=== PATIENT | female | born 1940 | race Caucasian/White ===

== ENCOUNTER 2018-03-18 09:54 | Outpatient (CLI) | payer OTHER, SELFPAY ==
[2018-03-18 13:27] LABS: TSH (W/Ref FT4) 2.89 uIU/mL (0.358-3.74)
== END 2018-03-18 10:14 ==
PROVIDERS: PCP Family Medicine; Visit Provider Family Medicine
DX: E03.9 Hypothyroidism, unspecified (principal)
CPT/HCPCS: 36415; 84443

== ENCOUNTER 2018-04-01 01:15 | Outpatient (CLI) | payer OTHER, SELFPAY ==
--- NOTE | 2018-04-01 11:30 | DI.MAMMO_ITS ---
SYMPTOMS/DIAGNOSIS: SCREENING, Z12.31 MAMMOGRAM: Mammograms were interpreted according to the usual protocol including computer analysis with CAD system, tomosynthesis and C view imaging. The breast tissue is of moderate radiodensity. There is no evidence of a mass. There are no suspicious calcifications and there has been no significant interval change when compared with prior images. SUMMARY: No evidence of malignancy, Category I, yearly screening mammography is recommended. Breast density Category B. SA ASSESSMENT OF FINDINGS: Negative. Category 1. Patient will receive a letter notifying them of these results. BI-RADS category B. There are scattered areas of fibroglandular density.
== END 2018-04-01 01:35 ==
PROVIDERS: PCP Family Medicine; Visit Provider Family Medicine
DX: Z12.31 Encounter for screening mammogram for malignant neoplasm of breast (principal)
CPT/HCPCS: 77063; 77067

== ENCOUNTER 2018-09-16 09:20 | Outpatient (CLI) | payer OTHER, SELFPAY ==
[2018-09-16 12:25] LABS: Cholesterol 202 mg/dL (50-200); HDL Cholesterol 75 mg/dL (40-60); LDL CHOLESTEROL 107 mg/dL (<100); Triglyceride 80 mg/dL (30-150)
[2018-09-16 12:32] LABS: ALT 17 U/L (12-78); AST 17 U/L (15-37); Albumin 3.7 g/dL (3.4-5.0); Alkaline Phosphatase 90 U/L (46-116); Anion Gap 9.2 mmol/L (3-11); BUN 30 mg/dL (7-18); Bilirubin, Total 0.5 mg/dL (0.2-1.0); CO2 28.8 mmol/L (21.0-32.0); CREATININE 1.34 mg/dL (0.55-1.02); Calcium 9.2 mg/dL (8.5-10.1); Chloride 103 mmol/L (98-107); Estimated GFR 38.35 (mL/min/1.73m2); Glucose 92 mg/dL (70-100); Potassium 4.3 mmol/L (3.5-5.1); Sodium 141 mmol/L (136-145); TSH (W/Ref FT4) 2.02 uIU/mL (0.358-3.74); Total Protein 7.1 g/dL (6.4-8.2)
== END 2018-09-16 09:40 ==
PROVIDERS: PCP Family Medicine; Visit Provider Family Medicine
DX: I10 Essential (primary) hypertension (principal); E03.9 Hypothyroidism, unspecified
CPT/HCPCS: 80053; 80061; 83721; 84443

== ENCOUNTER 2019-03-03 01:30 | Outpatient (CLI) | payer OTHER, SELFPAY ==
[2019-03-03 13:36] LABS: TSH (W/Ref FT4) 2.26 uIU/mL (0.36-3.74)
== END 2019-03-03 01:50 ==
PROVIDERS: PCP Family Medicine; Visit Provider Family Medicine
DX: E03.9 Hypothyroidism, unspecified (principal)
CPT/HCPCS: 36415; 80061; 84443

== ENCOUNTER 2020-03-07 02:30 | Outpatient (CLI) | payer OTHER, SELFPAY ==
[2020-03-07 13:05] LABS: ALT 18 U/L (14-59); AST 21 U/L (15-37); Albumin 3.6 g/dL (3.4-5.0); Alkaline Phosphatase 81 U/L (46-116); Anion Gap 7.4 mmol/L (3-11); BUN 25 mg/dL (7-18); Bilirubin, Total 0.4 mg/dL (0.2-1.0); CO2 30.6 mmol/L (21.0-32.0); CREATININE 1.39 mg/dL (0.55-1.02); Calcium 9.5 mg/dL (8.5-10.1); Chloride 104 mmol/L (98-107); Estimated GFR 36.57 (mL/min/1.73m2); Glucose 96 mg/dL (74-106); Potassium 4.3 mmol/L (3.5-5.1); Sodium 142 mmol/L (136-145); Total Protein 6.8 g/dL (6.4-8.2)
== END 2020-03-07 02:50 ==
PROVIDERS: PCP Family Medicine; Visit Provider Family Medicine
DX: E03.9 Hypothyroidism, unspecified (principal); I10 Essential (primary) hypertension
CPT/HCPCS: 36415; 80053; 84443

== ENCOUNTER 2020-06-13 01:59 | Outpatient (CLI) | payer OTHER, SELFPAY ==
--- NOTE | 2020-06-13 08:15 | DI.RAD_ITS ---
EXAM: XR HIP LT COMPLETE AP PELVIS CLINICAL HISTORY: hip arthritis, pain lt hip, M25.552. TECHNIQUE: 2D digital imaging was performed. FINDINGS: There is no evidence of fracture nor abnormal soft tissue calcifications. There are moderate osteoar thritic degenerative changes in the left hip. There is mild joint space narrowing and there are lenin inal osteophytes of both sides the femoral head. No lytic lesions. Lesser amount of degenerative ch anges are seen in the opposite-right hip. 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 DATA REPOSITORY: RADIATION DOSE DELIVERED:
== END 2020-06-13 02:19 ==
PROVIDERS: PCP Family Medicine; Visit Provider Family Medicine
DX: M16.12 Unilateral primary osteoarthritis, left hip (principal)
CPT/HCPCS: 73502

== ENCOUNTER 2020-11-01 03:12 | Outpatient (CLI) | payer OTHER, SELFPAY ==
[2020-11-01 12:48] LABS: ALT 19 U/L (14-59); AST 18 U/L (15-37); Albumin 3.7 g/dL (3.4-5.0); Alkaline Phosphatase 76 U/L (46-116); Anion Gap 8.1 mmol/L (3-11); BUN 30 mg/dL (7-18); Bilirubin, Total 0.4 mg/dL (0.2-1.0); CO2 27.9 mmol/L (21.0-32.0); CREATININE 1.5 mg/dL (0.55-1.02); Calcium 8.6 mg/dL (8.5-10.1); Chloride 105 mmol/L (98-107); Glucose 85 mg/dL (74-106); Potassium 4.6 mmol/L (3.5-5.1); Sodium 141 mmol/L (136-145); TSH (W/Ref FT4) 1.59 uIU/mL (0.36-3.74); Total Protein 6.9 g/dL (6.4-8.2)
== END 2020-11-01 03:13 | disposition home or self-care (01) ==
PROVIDERS: PCP Family Medicine; Visit Provider Family Medicine
DX: N18.9 Chronic kidney disease, unspecified (principal); E03.9 Hypothyroidism, unspecified
CPT/HCPCS: 36415; 80053; 84443

== ENCOUNTER 2021-03-02 02:47 | Outpatient (CLI) | payer OTHER, SELFPAY ==
[2021-03-02 12:52] LABS: ALT 16 U/L (14-59); AST 15 U/L (15-37); Albumin 3.6 g/dL (3.4-5.0); Alkaline Phosphatase 84 U/L (46-116); Anion Gap 9.9 mmol/L (3-11); BUN 30 mg/dL (7-18); Bilirubin, Total 0.4 mg/dL (0.2-1.0); CO2 25.1 mmol/L (21.0-32.0); CREATININE 1.9 mg/dL (0.55-1.02); Calcium 8.3 mg/dL (8.5-10.1); Chloride 106 mmol/L (98-107); Estimated GFR 25.44 (mL/min/1.73m2); Glucose 92 mg/dL (74-106); Potassium 4.4 mmol/L (3.5-5.1); Sodium 141 mmol/L (136-145); Total Protein 6.9 g/dL (6.4-8.2)
== END 2021-03-02 02:48 | disposition home or self-care (01) ==
LOC: LOS 02:48
PROVIDERS: PCP Family Medicine; Visit Provider Family Medicine
DX: N28.9 Disorder of kidney and ureter, unspecified (principal)
CPT/HCPCS: 36415; 80053

== ENCOUNTER 2021-04-13 15:03 | Outpatient (REF) | payer MEDICARE, SELFPAY ==
[2021-04-14 13:27] LABS: COVID-19 RT-PCR UVMMC Result Negative (Negative)
== END 2021-04-13 15:04 | disposition home or self-care (01) ==
LOC: LBN 15:03
PROVIDERS: PCP Family Medicine; Visit Provider Family Medicine
DX: Z20.822 Contact with and (suspected) exposure to COVID-19 (principal); J02.9 Acute pharyngitis, unspecified
CPT/HCPCS: U0003; U0005

== ENCOUNTER 2021-10-24 01:20 | Outpatient (CLI) | payer MEDICARE, SELFPAY ==
[2021-10-24 10:07] LABS: Anion Gap 9.6 mmol/L (3-11); BUN 31 mg/dL (7-18); CO2 26.4 mmol/L (21.0-32.0); CREATININE 1.9 mg/dL (0.55-1.02); Calcium 8.7 mg/dL (8.5-10.1); Chloride 106 mmol/L (98-107); Estimated GFR 25.44 (mL/min/1.73m2); Glucose 98 mg/dL (74-106); Potassium 4.4 mmol/L (3.5-5.1); Sodium 142 mmol/L (136-145)
== END 2021-10-24 01:21 | disposition home or self-care (01) ==
LOC: LBO 01:20
PROVIDERS: PCP Family Medicine; Visit Provider Family Medicine
DX: I10 Essential (primary) hypertension (principal); N28.9 Disorder of kidney and ureter, unspecified
CPT/HCPCS: 36415; 80048

== ENCOUNTER → 2021-11-22 12:31 | Outpatient (CLI) | payer MEDICARE, SELFPAY ==
--- NOTE | 2021-11-22 10:15 | DI.RAD_ITS ---
Exam(s) XR FOOT RT COMPLETE EXAM: XR FOOT RT COMPLETE CLINICAL HISTORY: trauma r/o fx, rt foot pain, M79.671. TECHNIQUE: 2D digital imaging was performed. COMPARISON: No exams were available for comparison FINDINGS: 3 views No evidence of fracture nor diastasis of the Lisfranc joint. No degenerative changes. No osseous lesions nor erosions. Bone density is age-appropriate. No osse ous lesions. IMPRESSION: DATA REPOSITORY: RADIATION DOSE DELIVERED:
== END ==
PROVIDERS: PCP Family Medicine; Visit Provider Nurse Practitioner
DX: M79.671 Pain in right foot (principal); S99.821A Other specified injuries of right foot, initial encounter
CPT/HCPCS: 73630

== ENCOUNTER 2022-01-30 11:28 | Outpatient (REF) | payer MEDICARE, SELFPAY ==
[2022-01-30 20:44] LABS: Abs Immature Grans 0.04 10^3/uL (0.0-0.06); Absolute Basophil Count 0.07 10^3/uL (0.0-0.2); Absolute Eosinophil Count 0.23 10^3/uL (0.0-0.7); Absolute Lymphocyte Count 0.82 10^3/uL (1.2-3.4); Absolute Neutrophil Count 5.64 10^3/uL (1.2-6.7); Basophils % 0.9; Eosinophils % 3.1; HCT 38.4 % (36.0-46.0); HGB 12.6 g/dL (11.2-15.7); Immature Grans % 0.5; Lymphocytes % 11.1; MCHC 32.8 % (32.0-36.0); MCV 95 fL (80-95); MPV 11.8 fL (8.0-11.0); Monocytes % 8.1; Neutrophils % 76.3; Platelet Count 247 10^3/uL (130-400); RBC 4.06 10^6/uL (3.93-5.22); RDW 11.9 % (11.7-14.6); RDW-SD 41.5 fL
[2022-01-30 21:07] LABS: ALT 19 U/L (14-59); AST 20 U/L (15-37); Albumin 3.9 g/dL (3.4-5.0); Alkaline Phosphatase 84 U/L (46-116); Anion Gap 9.4 mmol/L (3-11); BUN 34 mg/dL (7-18); Bilirubin, Total 0.3 mg/dL (0.2-1.0); CO2 27.6 mmol/L (21.0-32.0); CREATININE 1.9 mg/dL (0.55-1.02); Calcium 9.2 mg/dL (8.5-10.1); Chloride 101 mmol/L (98-107); Estimated GFR 25.37 (mL/min/1.73m2); Glucose 105 mg/dL (74-106); Potassium 4.5 mmol/L (3.5-5.1); Sodium 138 mmol/L (136-145); Total Protein 7.5 g/dL (6.4-8.2)
== END 2022-01-30 11:29 | disposition home or self-care (01) ==
LOC: LBN 11:28
PROVIDERS: PCP Family Medicine; Visit Provider Nurse Practitioner Family
DX: K62.5 Hemorrhage of anus and rectum (principal)
CPT/HCPCS: 80053; 85025

== ENCOUNTER 2022-02-08 10:22 | Outpatient (CLI) | payer MEDICARE, SELFPAY ==
[2022-02-08 13:00] LABS: TSH (W/Ref FT4) 2.01 uIU/mL (0.36-3.74)
[2022-02-09 11:58] LABS: Albumin 55.9 % (55.8-66.1); Albumin g/dL 3.6 g/dL (3.6-5.2); Total Protein 6.5 g/dL (6.3-8.2)
== END 2022-02-08 10:23 | disposition home or self-care (01) ==
LOC: LOS 10:22
PROVIDERS: PCP Family Medicine; Visit Provider Family Medicine
DX: E03.9 Hypothyroidism, unspecified (principal); I10 Essential (primary) hypertension; N28.9 Disorder of kidney and ureter, unspecified
CPT/HCPCS: 36415; 84165; 84443

== ENCOUNTER 2022-11-01 10:07 | Outpatient (CLI) | payer MEDICARE, SELFPAY ==
--- NOTE | 2022-11-01 09:46 | DI.CT_ITS ---
Exam(s) CT CHEST PE CTA EXAM: CT CHEST PE CTA CLINICAL HISTORY: smoker: fatigue, hypoxia, wheezing - all new, R06.00, R09.02, F17.210. TECHNIQUE: Imaging Protocol: Axial CT angiography was performed with multi-slice acquisition and mu lti-planar and/or 3D reconstructions. CONTRAST MATERIAL: Intravenous: Omnipaque 350 contrast volume:60 mL COMPARISON: CT CHEST WITH CONTRAST from 10/12/2010 FINDINGS: Tracheobronchial tree: Patent where visualized. Pulmonary parenchyma: There is unchanged scarring in the lung apices. There is a mild ground-glass i nfiltrate in the right lower lobe. No focal consolidating infiltrates are seen. No architectural di stortion. Pulmonary Arteries: No evidence of filling defect to suggest pulmonary emboli. Mediastinum and Alecia: No dominant adenopathy or fluid collection. The esophagus is unremarkable. Th ere is a small hiatal hernia. Visualized thyroid gland: Unremarkable. Pleura: No effusion or pneumothorax. Heart: The heart is not dilated. Mild coronary artery calcification is present. No pericardial effus ion. Aorta: Thoracic aorta non-dilated. No evidence of dissection. Atherosclerosis is present. Upper abdomen: Stable hepatic cyst. Soft tissues: Unremarkable. Bones: Within normal limits for the patient's age. IMPRESSION: 1. No evidence of pulmonary embolism, thoracic aortic dissection or aneurysm. 2. Mild ground-glass infiltrate in the right lower lobe. This is nonspecific. An inflammatory or in fectious process should be considered. RADIATION DOSE DELIVERED: 261.63mGy.cm Total DLP DATA REPOSITORY: All CT scans at this facility are submitted to the National Radiology Data Registry (NRDR) Dose Index Registry (DIR) with the [employer] (ACR). RADIATION OPTIMIZATION: All CT scans at this facility use at least one of these dose optimization te chniques: automated exposure control; mA and/or kV adjustment per patient size (includes targeted exa ms where dose is matched to clinical indication); or iterative reconstruction.
--- NOTE | 2022-11-01 10:15 | DI.RAD_ITS ---
Exam(s) XR CHEST 2V PA LATERAL EXAM: XR CHEST 2V PA LATERAL CLINICAL HISTORY: fatigue, smoker,dyspnea,r06.00 TECHNIQUE: 2D digital imaging was performed of the chest. Two images were obtained. PA and lateral views were obtained. COMPARISON: CR CHEST 2 VIEWS PA,LAT from 11/09/2010 FINDINGS: MEDIASTINUM: Normal. HEART: Normal. PULMONARY VASCULATURE: Normal. LUNGS: The lungs are hyperinflated consistent with underlying COPD. No focal infiltrates are seen. PLEURAL SPACE: No pleural effusion or pneumothorax. BONE:Within normal limits for the patient's age. OTHER FINDINGS:Normal. IMPRESSION: No acute pulmonary findings. DATA REPOSITORY: RADIATION DOSE DELIVERED:
[2022-11-01 14:59] LABS: HCT 40.2 % (36.0-46.0); HGB 13.6 g/dL (11.2-15.7); MCHC 33.8 % (32.0-36.0); MCV 92 fL (80-95); MPV 10.4 fL (8.0-11.0); Platelet Count 326 10^3/uL (130-400); RBC 4.39 10^6/uL (3.93-5.22); RDW 12.5 % (11.7-14.6); RDW-SD 42.1 fL; WBC 12.83 10^3/uL (4.4-10.8)
[2022-11-01 15:01] LABS: ESR 17 mm/hr (0-30)
[2022-11-01 15:21] LABS: ALT 14 U/L (14-59); AST 15 U/L (15-37); Albumin 3.5 g/dL (3.4-5.0); Alkaline Phosphatase 86 U/L (46-116); Anion Gap 10.3 mmol/L (3-11); BUN 33 mg/dL (7-18); Bilirubin, Total 0.4 mg/dL (0.2-1.0); CO2 25.7 mmol/L (21.0-32.0); CREATININE 1.6 mg/dL (0.55-1.02); Calcium 9.3 mg/dL (8.5-10.1); Chloride 100 mmol/L (98-107); Glucose 107 mg/dL (74-106); NT-proBNP 214 pg/mL (<300); Potassium 3.6 mmol/L (3.5-5.1); Sodium 136 mmol/L (136-145); TSH (W/Ref FT4) 2.46 uIU/mL (0.36-3.74); Total Protein 7.5 g/dL (6.4-8.2)
[2022-11-01] MEDS: Omnipaque 350 MG/ML 100 ML BTL IJ (15:53)
[2022-11-01] MEDS: Normal Saline - Diluent 50 ML VIAL IJ (15:53)
[2022-11-01] MEDS: Normal Saline Flush 10 ML SYR IVP (15:54)
== END 2022-11-01 10:27 ==
PROVIDERS: PCP Family Medicine; Visit Provider Family Medicine
DX: F17.200 Nicotine dependence, unspecified, uncomplicated (principal); R09.02 Hypoxemia; N28.9 Disorder of kidney and ureter, unspecified; J31.0 Chronic rhinitis; R91.8 Other nonspecific abnormal finding of lung field
CPT/HCPCS: 71275; 80053; 85027; 85652; 71046; 83880; 84443; J3490

== ENCOUNTER 2022-11-29 09:09 | Outpatient (CLI) | payer MEDICARE, SELFPAY ==
--- NOTE | 2022-11-29 08:45 | DI.US_ITS ---
APPROVED REPORT EXAM: Comprehensive 2D, Doppler, and color-flow Echocardiogram Patient Location: Out-Patient [employer] Assistant: Elías Cuevas RDMS, RVT Indications: CHF, dyspnea Other Information Study Quality: Adequate Conclusion Normal left ventricular wall thickness and chamber size. Ejection fraction is 60%. Wall motion is n ormal Normal right ventricular size and systolic function Both atria are normal in size Aortic valve is mildly sclerotic with trace regurgitation. There is no aortic stenosis Normal mitral valve with mild regurgitation Normal tricuspid valve with mild regurgitation Estimated right ventricular systolic pressure is 27 mmHg Wall motion Left Ventricle The left ventricle is normal size. The left ventricular systolic function is normal. The left ventric ular ejection fraction is within the normal range. There is normal left ventricular wall thickness. T here is normal LV segmental wall motion. There is no ventricular septal defect visualized. LVEF is 60 %. Right Ventricle The right ventricle is normal size. The right ventricular systolic function is normal. The RVSP is 27 .1 mmHg. Atria The left atrium size is normal. The right atrium size is normal. The interatrial septum is intact wit h no evidence for an atrial septal defect. Aortic Valve Aortic valve is mildly sclerotic. Number of aortic valve leaflets cannot be accurately determined The re is no aortic valvular stenosis. Trace aortic regurgitation. Mitral Valve The mitral valve is normal in structure. No evidence of mitral valve stenosis. Mild mitral regurgitat ion. Tricuspid Valve The tricuspid valve is normal in structure. There is no tricuspid valve stenosis. Mild tricuspid regu rgitation. Pulmonic Valve Pulmonic valve is not well visualized. There is no pulmonic valvular stenosis. There is no pulmonic v alvular regurgitation. Great Vessels The aortic root is normal in size. Ascending aorta is not well visualized. IVC is normal in size and collapses >50% with inspiration. Pericardium There is no pericardial effusion. 2D Dimensions IVSD d PLAX 0.48 cm F: 0.6-1.0 LV Vol A2C d MOD 65.8 mL LVPW d PLAX 0.48 cm F: 0.6 - 1.0 LV Vol A4C d MOD 65.6 mL LVID d PLAX 4.23 cm F: 3.8 - 5.2 LA vol/ BSA A4C s A-L 19.4 mL/m2 LVDs 2.80 cm F: 2.2 - 3.5 LA Area A4C s MOD 12.68 cm2 Ao Root d 2.54 cm F: 2.7 - 3.3 LV EF A4C MOD 59.3 % LV EF Teichholz 62.8 % LV EF A2C MOD 59.9 % LVEF (Osorio's) 58.44 % F: 54 - 74 LV EF Biplane MOD 58.4 % LV Volume 54.59 mL F: 46 - 106 SV 39.28 mL LV Volume Index 34.11 mL/m2 F: 29 - 61 SV Index 24.52 mL/m2 LV Vol Biplane MOD 67.2 mL FS 33.60 % M-Mode TAPSE 2.16 cm (M/F) >1.7 LV Diastology MV E' medial 0.125 (>0.07 m/s) E/A Ratio 1.1 LV E/e MED 8.50 (<14) MV E Vmax 1.06 (0.4-1.3 m/s) MV E' lateral 0.115 (>0.1 m/s) MV A Vmax 1.00 (0.4-1.3 m/s) LV E/e LAT 9.20 (<14) MV E/A Ratio 1.03 MV E/E' medial 8.52 MV E/E' lateral 9.24 Aortic Valve LVOT Area 2.27 cm2 AoV Area Vmax 2.01 cm2 LVOT Vmax 1.04 m/s AoV Area/ BSA (Vmax) 1.26 cm2/m2 LVOT Mean Elroy. 0.68 m/s GLEN Mean Elroy. 1.97 cm2 LVOT Peak Grad 4.3 mmHg GLEN Mean Elroy. Index 1.23 cm2/m2 LVOT Mean Grad 2.2 mmHg AR DT 2522 msec LVOT VTI 0.290 m AR PHT 731 msec LVOT Diam s 1.65 cm AoV Vmax 1.17 m/s Velocity Ratio 0.89 AoV Mean Elroy. 0.79 m/s AoV Peak Grad 5.5 mmHg LVOT SV 65.84 mL AoV Mean Grad 2.8 mmHg AoV VTI 0.300 m AoV Area VTI 2.19 cm2 AoV Area/ BSA (VTI) 1.37 cm/m2 Mitral Valve MV DT 184 (160-240 msec) MV PHT 53 msec MV Area PHT 4.13 cm2 MV VTI 0.313 m MV Area VTI 2.11 (4.0-6.0 cm2) Pulmonary Valve PV Vmax 0.70 (0.5-1.5 m/s) RVOT Peak Gr. 1.34 mmHg PV Peak Grad 2.0 mmHg RVOT Mean Gr. 0.65 mmHg PV Mean Grad 1.1 mmHg RVOT VTI 0.147 m PV VTI 0.174 m RVOT Vmax 0.58 m/s Tricuspid Valve TR Peak Grad 24.1 mmHg TR Vmax 2.46 m/s RA Pressure 3.00 mmHg RVSP (TR) 27.1 mmHg
== END 2022-11-29 09:29 ==
LOC: DI 09:09
PROVIDERS: PCP Family Medicine; Visit Provider Family Medicine
DX: R06.00 Dyspnea, unspecified (principal)
CPT/HCPCS: 93306

== ENCOUNTER → 2023-01-31 04:24 | Outpatient (CLI) | payer MEDICARE, SELFPAY ==
--- NOTE | 2023-01-31 08:15 | DI.CT_ITS ---
Exam(s) CT CHEST WO EXAM: CT CHEST WO CLINICAL HISTORY: F/U abnl CT scan 11/06,GROUND GLASS OPACITY,R91.8 TECHNIQUE: Imaging Protocol: Axial computed tomography images with coronal and sagittal reformatted images were created and reviewed CONTRAST MATERIAL: Intravenous: Omnipaque 350 Contrast volume:structured data ml. COMPARISON: CT CT CHEST PE CTA from 11/01/2022 CR XR CHEST 2V PA LATERAL from 11/01/2022 FINDINGS: Pulmonary parenchyma: Stable biapical scarring, right greater than left. Clearing previously noted m ild ground-glass opacities in the right lower lobe. No mass or pulmonary nodules. Tracheobronchial tree: No bronchiectasis or mucous plugging. Mediastinum and Alecia: No dominant adenopathy or fluid collection. Pleura: No effusion or pneumothorax. Heart: The heart is not dilated. Mild coronary artery calcifications are seen. Aorta: Thoracic aorta non-dilated. Mild atherosclerotic changes. Upper abdomen: Stable cyst left lobe of the liver. Left kidney somewhat atrophic. Compensatory hyp ertrophy of the right kidney. Bones: Degenerative changes in the spine. Soft tissues: Unremarkable. IMPRESSION: Clearing of previously noted ground-glass opacities right lower lobe. No acute abnormality. RADIATION DOSE DELIVERED: 335.26mGy.cm Total DLP DATA REPOSITORY: All CT scans at this facility are submitted to the National Radiology Data Registry (NRDR) Dose Index Registry (DIR) with the [employer] (ACR). RADIATION OPTIMIZATION: All CT scans at this facility use at least one of these dose optimization te chniques: automated exposure control; mA and/or kV adjustment per patient size (includes targeted exa ms where dose is matched to clinical indication); or iterative reconstruction.
== END ==
PROVIDERS: PCP Family Medicine; Visit Provider Family Medicine
DX: R91.8 Other nonspecific abnormal finding of lung field (principal)
CPT/HCPCS: 71250

== ENCOUNTER → 2023-04-19 14:25 | Outpatient (CLI) | payer MEDICARE, SELFPAY ==
--- NOTE | 2023-04-19 11:30 | DI.RAD_ITS ---
Exam(s) XR CHEST 2V PA LATERAL EXAM: XR CHEST 2V PA LATERAL CLINICAL HISTORY: dyspnea, respiratory abnormalities, R06.00, R06.89 TECHNIQUE: 2D digital imaging was performed. COMPARISON: CR XR CHEST 2V PA LATERAL from 11/01/[address] CHEST WO from 01/31/2023 FINDINGS: HEART: Normal size. Aorta: Not dilated. PULMONARY VASCULATURE: Normal. LUNGS: Scarring right upper lung apex. Lungs otherwise clear. PLEURAL SPACE: No pleural effusion or pneumothorax. BONE:Unremarkable for age. IMPRESSION: No acute abnormality. DATA REPOSITORY: RADIATION DOSE DELIVERED:
== END ==
PROVIDERS: PCP Family Medicine; Visit Provider Family Medicine
DX: R06.89 Other abnormalities of breathing
CPT/HCPCS: 71046

== ENCOUNTER 2023-04-19 15:02 | Outpatient (CLI) | payer MEDICARE, SELFPAY ==
[2023-04-19 12:27] LABS: Abs Immature Grans 0.04 10^3/uL (0.0-0.06); Absolute Basophil Count 0.06 10^3/uL (0.0-0.2); Absolute Eosinophil Count 0.05 10^3/uL (0.0-0.7); Absolute Lymphocyte Count 0.58 10^3/uL (1.2-3.4); Absolute Monocyte Count 0.54 10^3/uL (0.1-0.8); Absolute Neutrophil Count 7.39 10^3/uL (1.2-6.7); Basophils % 0.7; Eosinophils % 0.6; HCT 40.4 % (36.0-46.0); HGB 13.3 g/dL (11.2-15.7); Immature Grans % 0.5; Lymphocytes % 6.7; MCH 30.6 pg (27.0-33.0); MCHC 32.9 % (32.0-36.0); MCV 93 fL (80-95); MPV 10.6 fL (8.0-11.0); Monocytes % 6.2; Neutrophils % 85.3; Platelet Count 280 10^3/uL (130-400); RBC 4.34 10^6/uL (3.93-5.22); RDW 11.9 % (11.7-14.6); RDW-SD 41.3 fL; WBC 8.66 10^3/uL (4.4-10.8)
[2023-04-19 13:00] LABS: ALT 18 U/L (14-59); AST 19 U/L (15-37); Albumin 3.8 g/dL (3.4-5.0); Alkaline Phosphatase 80 U/L (46-116); Anion Gap 7.8 mmol/L (3-11); BUN 32 mg/dL (7-18); Bilirubin, Total 0.5 mg/dL (0.2-1.0); CO2 29.2 mmol/L (21.0-32.0); CREATININE 1.7 mg/dL (0.55-1.02); Calcium 10.3 mg/dL (8.5-10.1); Chloride 99 mmol/L (98-107); Estimated GFR 29.76 (mL/min/1.73m2); Glucose 117 mg/dL (74-106); NT-proBNP 689 pg/mL (<300); Potassium 4.1 mmol/L (3.5-5.1); Sodium 136 mmol/L (136-145); TSH (W/Ref FT4) 1.58 uIU/mL (0.36-3.74); Total Protein 7.9 g/dL (6.4-8.2)
== END 2023-04-19 15:03 | disposition home or self-care (01) ==
LOC: LBO 15:03
PROVIDERS: PCP Family Medicine; Visit Provider Family Medicine
DX: E03.9 Hypothyroidism, unspecified (principal); R06.00 Dyspnea, unspecified; R06.89 Other abnormalities of breathing; Z00.00 Encounter for general adult medical examination without abnormal findings
CPT/HCPCS: 36415; 80053; 83880; 84443; 85025

== ENCOUNTER → 2023-04-29 01:38 | Outpatient (CLI) | payer MEDICARE, SELFPAY ==
--- NOTE | 2023-04-29 07:43 | DI.CT_ITS ---
Exam(s) CT ABDOMEN PELVIS WO EXAM: CT ABDOMEN PELVIS WO CLINICAL HISTORY: anorexia,wt loss,renal insufficiency,r63.4,r63.0,n28.9. TECHNIQUE: Imaging Protocol: Axial computed tomography images with coronal and sagittal reformatted images were created and reviewed. Oral: yes / COMPARISON: CT CHEST WITH CONTRAST from 10/12/[address] CHEST PE CTA from 11/01/2022 CR XR CHEST 2V PA LATERAL from 04/19/2023 FINDINGS: ABDOMEN: Lung Bases: Normal where visualized. Liver: Normal density. Simple cyst left lobe, unchanged from 06/05. Gallbladder and biliary tract: No radiodense calculus or dilation. Pancreas: Normal density, no abnormal calcifications or inflammatory process. Spleen: Normal. Kidneys: Left kidney is moderately atrophic. There is some compensatory hypertrophy of the right kid concetta. No radiodense stones or obstructive uropathy. No masses seen. Adrenal glands: No masses seen. Lymph nodes: Within normal limits. Abdominal Aorta: Abdominal portion non-dilated. Atherosclerotic calcification. PELVIS: Bladder: No wall thickening. No mass or calculi. Bowel: No obstruction or bowel wall thickening. Peritoneal cavity: No ascites, collection or mesenteric inflammatory response. Reproductive organs: Within normal limits. Bones: L5 spondylolysis and slight L5-S1 spondylolisthesis IMPRESSION: Atrophic left kidney. No evidence of hydronephrosis. RADIATION DOSE DELIVERED: Total DLP DATA REPOSITORY: All CT scans at this facility are submitted to the National Radiology Data Registry (NRDR) Dose Index Registry (DIR) with the [employer] (ACR). RADIATION OPTIMIZATION: All CT scans at this facility use at least one of these dose optimization te chniques: automated exposure control; mA and/or kV adjustment per patient size (includes targeted exa ms where dose is matched to clinical indication); or iterative reconstruction.
[2023-04-29 12:59] LABS: HCT 39.5 % (36.0-46.0); HGB 13.4 g/dL (11.2-15.7); MCH 31.2 pg (27.0-33.0); MCHC 33.9 % (32.0-36.0); MCV 92 fL (80-95); MPV 10.6 fL (8.0-11.0); Platelet Count 254 10^3/uL (130-400); RBC 4.29 10^6/uL (3.93-5.22); RDW-SD 40.9 fL; WBC 9.54 10^3/uL (4.4-10.8)
[2023-04-29 13:20] LABS: ALT 18 U/L (14-59); AST 20 U/L (15-37); Albumin 3.8 g/dL (3.4-5.0); Alkaline Phosphatase 87 U/L (46-116); Anion Gap 6.8 mmol/L (3-11); BUN 48 mg/dL (7-18); Bilirubin, Total 0.5 mg/dL (0.2-1.0); CO2 30.2 mmol/L (21.0-32.0); CREATININE 1.8 mg/dL (0.55-1.02); Calcium 10.1 mg/dL (8.5-10.1); Chloride 100 mmol/L (98-107); Estimated GFR 27.78 (mL/min/1.73m2); Glucose 115 mg/dL (74-106); Potassium 4.7 mmol/L (3.5-5.1); Sodium 137 mmol/L (136-145)
== END ==
PROVIDERS: PCP Family Medicine; Visit Provider Family Medicine
DX: R63.4 Abnormal weight loss; R06.00 Dyspnea, unspecified; R06.89 Other abnormalities of breathing; I10 Essential (primary) hypertension; N26.1 Atrophy of kidney (terminal)
CPT/HCPCS: 80053; 85027; 74176

== ENCOUNTER 2023-06-03 14:04 | Emergency (ER) | payer MEDICARE, SELFPAY ==
[2023-06-03] VITALS (8 sets, daily range): BP systolic 177–181; BP diastolic 56–80; PULSE 61–71; RESP 15–22; TEMP 36.9; O2SAT 96–99
--- NOTE | 2023-06-03 13:45 | RT.EKG_ITS ---
APPROVED REPORT Exam: Resting ECG Reason for Exam: dizziness Patient Location: E HR:59 bpm ECG Measurements Heart Rate 59 AXIS TX 181 P 43 QRSd 85 QRS 56 QT 449 T 51 QTc 447 Conclusion Sinus bradycardia...rate< 60 Consider anteroseptal infarct...Q >30mS, dimin R, V1-V2 Narrow complex sinus bradycardia at a rate of 59. Normal axis. Intervals within normal limits. No ST segment abnormalities. T wave flattening in V2. No prior for comparison. No acute injury george wharton
--- NOTE | 2023-06-03 14:15 | DI.CT_ITS ---
Exam(s) CT HEAD - STROKE PROTOCOL EXAM: CT HEAD - STROKE PROTOCOL CLINICAL HISTORY: Dizziness. TECHNIQUE: Imaging Protocol: Axial computed tomography images with coronal and sagittal reformatted images were created and reviewed COMPARISON: No exams were available for comparison FINDINGS: Ventricles and Extra axial spaces: Normal in size and morphology for the patient's age. There is a 0. 6 cm calcified extra-axial mass along the right parietal convexity likely reflecting a meningioma. Hemorrhage: None. Cerebral parenchyma: There are areas of decreased attenuation in the white matter most consistent wit h small vessel ischemic disease. No mass effect is identified. Midline shift: None. Brainstem/Cerebellum: Normal. Calvarium: Normal. Visualized Paranasal sinuses/Mastoids: Clear. Soft Tissues: Unremarkable. IMPRESSION: 1. No acute intracranial process. 2. Findings were discussed with the emergency department at 3:13 p.m. on 06/03/2023. RADIATION DOSE DELIVERED: Total DLP DATA REPOSITORY: All CT scans at this facility are submitted to the National Radiology Data Registry (NRDR) Dose Index Registry (DIR) with the [employer] (ACR). RADIATION OPTIMIZATION: All CT scans at this facility use at least one of these dose optimization te chniques: automated exposure control; mA and/or kV adjustment per patient size (includes targeted exa ms where dose is matched to clinical indication); or iterative reconstruction.
--- NOTE | 2023-06-03 14:15 | DI.MRI_ITS ---
Exam(s) MR BRAIN WO EXAM: MR BRAIN WO CLINICAL HISTORY: Dizziness concerning for posterior circulation CVA TECHNIQUE: Multiplanar multisequence MRI of the brain was performed. COMPARISON: CT CT HEAD - STROKE PROTOCOL from 06/03/2023 FINDINGS: The examination is limited due to patient motion artifact. VENTRICLES AND EXTRA AXIAL SPACES: Normal in size and morphology for the patient's age. There is a 7 mm extra-axial mass along the right parietal convexity most consistent with a meningioma. MIDLINE SHIFT: None. CEREBRAL PARENCHYMA: No focus of restricted diffusion to suggest acute infarct. No space-occupying le mary kate identified. There are areas of hyperintense signal seen in the white matter on the FLAIR and T2 weighted images consistent with small vessel ischemic disease. HEMORRHAGE: None. BRAINSTEM/CEREBELLUM: Normal. CALVARIUM: Normal. VISUALIZED PARANASAL SINUSES/MASTOIDS:Clear. [place]: Normal flow void. PITUITARY GLAND: Unremarkable. OTHER FINDINGS: None. IMPRESSION: 1. The examination is limited due to patient motion artifact. 2. No evidence of an acute infarct. 3. Age-related cerebral atrophy and chronic microvascular ischemic disease. 4. 7 mm extra-axial mass along the right parietal convexity consistent with a meningioma. DATA REPOSITORY:
--- NOTE | 2023-06-03 14:15 | DI.RAD_ITS ---
Exam(s) XR CHEST 1V IN DI DEPT EXAM: XR CHEST 1V IN DI DEPT CLINICAL HISTORY: Stroke alert TECHNIQUE: 2D digital imaging was performed of the chest. One image was obtained. An AP view was ob tained. COMPARISON: CR XR CHEST 2V PA LATERAL from 04/19/2023 FINDINGS: MEDIASTINUM: Normal. HEART: Normal. PULMONARY VASCULATURE: Normal. LUNGS: The lungs are hyperinflated. No focal consolidating infiltrates are seen. PLEURAL SPACE: No pleural effusion or pneumothorax. BONE:Within normal limits for the patient's age. OTHER FINDINGS:Normal. IMPRESSION: No acute pulmonary findings. DATA REPOSITORY: RADIATION DOSE DELIVERED:
--- NOTE | 2023-06-03 14:17 | ED.GENADUL_ITS ---
Discharge Plan Disposition Patient Disposition: Home Discharge Details Clinical Impression: Dizziness Primary Care Provider: Winnie Castillo ED Provider: Alexis Gonzalez Home Meds and New Rx's Prescriptions: Continued lidocaine 5 % ointment 1 applic TP BID PRN (Reason: pain) Qty: 120 3RF Rx Instructions: DIspense GLENMARK brand lisinopril-hydrochlorothiazide 20-25 mg tablet 1 tab PO DAILY Qty: 90 4RF mirtazapine 7.5 mg tablet 7.5 mg PO QHS Qty: 90 4RF albuterol sulfate [Ventolin HFA] 90 mcg/actuation HFA aerosol inhaler 2 puff inhalation Q6H PRN (Reason: shortness of breath or wheezing) Qty: 8.5 4RF aspirin [Aspir-81] 81 mg tablet,delayed release (DR/EC) 81 mg PO .2 x per week calcium carbonate-vitamin D3 [Caltrate with Vitamin D3] 600 mg(1,500mg) -800 unit tablet 1 - 2 tab PO DAILY levothyroxine 50 mcg tablet 50 mcg PO DAILY Qty: 90 11RF propranolol 20 mg tablet 20 mg PO TID Qty: 270 11RF Discharge Instructions Instructions: Dizziness (ED) Additional Instructions: Please read all of the information that accompanies these instructions. You were seen in the emergency department for your dizziness. Your CAT scan showed no sign of any strokes. Neurosurgery was consulted and they recommended an MRI brain scan with and without contrast. Your primary care provider will be contacted to order this study. Please schedule an appointment with your primary care provider later this week. Please return to the emergency department if dev elop worsening dizziness nausea vomiting chest pain or shortness of breath. Discharge Data Discharge Date/Time-TO BE ENTERED AT DEPARTURE: 06/03/23 19:09 HPI General Date/Time Provider Initiated Documentation: 06/03/23 14:15 . HPI Narrative: MDM Patient seen on arrival in the emergency department. In brief this is a hypertensive but normothermic and not tachycardic 82-year-old female with sudden onset dizziness associated with nausea but not vomiting concerning for the possibility of posterior circulation CVA based on her age her history of hypertension. Based on fast ED score with no aphasia no pronator drift I am not concerned for large vessel occlusion however patient does have access so we will also complete a CTA, if patient's dry CT head does not show any acute abnormalities. If initial CT scan is negative we will also order MRI brain. No neck pain to suggest cervical arterial dissection. No tonic-clonic activity to suggest seizure show no indication for EEG. No history of headaches nor polymyalgia rheumatica so my suspicion is low for temporal arteritis and has resulted did not order an ESR. No fevers no nuchal rigidity so will defer lumbar puncture. Not altered to suggest encephalitis. No chest pain to suggest ACS nor aortic dissection and ECG does not show any signs of heart block or dysrhythmias. No vomiting to suggest increased risk for acute electrolyte abnormalities. No head strike to suggest increased risk for intercranial hemorrhage. No pain or proportion to suggest necrotizing soft tissue infection. No dysuria no frequency so my suspicion is low for urinary tract infection. Will allow permissive hypertension as long as there is not an obvious bleed on CT scan. Fingerstick blood glucose per paramedics 138. 2:45 PM CBC lacks anemia thrombocytopenia and leukocytosis. CT reportedly has issues obtaining CTA so we will also order MRA head and neck. No obvious bleed on my preliminary interpretation of dry CT head. Negative initial troponin. Basic metabolic panel showing no MANPREET. Elevated BUN similar to prior. No hyperglycemia nor hypoglycemia. Normal reassuring magnesium. 4:11 PM Patient returned from MRI. She was in no acute distress. She was still feeling dizzy. Her neurological assessment was again reassuring. 4:15 PM MRI read as limited secondarily to motion artifact. No evidence of acute infarct. Patient was found to have a 7 mm extra-axial mass along the right parietal convexity consistent with meningioma which certainly could explain her symptoms. Will provide 500 mg levetiracetam as prophylaxis against seizure, updated patient and consult with [place] [facility] angio head read as no large vessel occlusion or significant stenosis. 5 PM Urinalysis negative for infection. 5:49 PM Negative COVID. I spoke with Dr. Freddy Adams from neurosurgery at [facility]. He did not see any clear evidence of a meningioma and did not feel that at 7 mm abnormality on her scan would cause her symptoms. He advised against continuing levetiracetam. He advised that the patient would benefit from an outpatient MRI brain with and without contrast to further assess for any masses. 6:52 PM Negative repeat troponin. Ambulatory and p.o. trial completed. Patient repo rtedly ambulated well. She tolerated p.o. with neither nausea or vomiting. Patient and her and I discussed strict return indications including any recurrent dizziness nausea vomiting chest pain or difficulty ambulating. She was no longer nauseous in the emergency department. I asked health refinery operator helper cracking unit Alexa to have the patient seen later this week by her primary care provider as she will likely benefit from an MRI brain with and without contrast. Patient understood her return indications and she was discharged with empiric trial of expectant outpatient management. I considered discharging this patient home meclizine but will defer this given her abnormal CT head and her age was a did not want to risk side effects. Chronic conditions affecting the care of the patient: Hypertension History obtained from an outside historian: N/A External record review: [facility] [place] Diagnostic interpretations performed by me: Per my independent interpretation chest x-ray shows: no acute cardiopulmonary process Per my independent interpretation EKG shows: Narrow complex sinus bradycardia at a rate of 59. Normal axis. Intervals within normal limits. No ST segment abnormalities. T wave flattening in V2. No prior for comparison. No acute injury pattern. Medications: N/A Social determinants of health affecting disposition: N/A Management discussed with: Neurosurgery [facility] Treatment/interventions considered: Hospitalization but deferred Response to therapies provided: Improved symptoms with time in the ED HPI This is an 82-year-old female with a history of hypertension arrived to the emergency department via EMS in setting of dizziness. Patient cannot recall exactly what she was doing at the time but noted that after lunch she had sudden onset dizziness. She does not feel that the room is spinning but that she is having trouble focusing. She called paramedics and was given 4 mg of ondansetron. She also feels weak. She has had trouble getting out of her chair. No prior history of similar symptoms. Patient denies headache chest pain shortness of breath and abdominal pain. No recent falls. No fevers. Patient denies history of DM & anticoagulation. She is a daily smoker but denies routine ethanol and illicits. Unable to complete additional history secondary to the acuity of the patient's presentation. Exam General: Uncomfortable-appearing in no acute distress speaking in complete sentences. Head: Normocephalic, atraumatic. Eye:[Pupils equal, round reactive to light.] Extraocular eye movements intact. No conjunctival injection. No scleral icterus. Ear, nose, mouth, throat: Grossly normal inspection. Normal voice, handling secretions normally. Neck: Trachea midline. Cardiovascular: Well-perfused distal extremities. Regular rate and rhythm Respiratory: Nonlabored respiration. Clear lungs Gastrointestinal: Nondistended abdomen. Soft nontender Musculoskeletal: No no significant lower extremity pitting edema. Moving all 4 extremities spontaneously. Skin: Normal for age and race, grossly normal temperature and turgor. No acute rash. Neurologic: Alert and appropriate, no apparent acute deficits. GCS 15. NIH stroke scale 0. No pronator drift. No truncal ataxia. Romberg deferred. No significant dysmetria nor dysdiadochokinesia. Psychiatric: Mood and manner are appropriate. Grooming and personal hygiene are appropriate. Related Data Home Medications Medication Instructions Recorded Confirmed aspirin 81 mg tablet,delayed 81 mg PO .2 x per week 03/22/20 06/03/23 release (Aspir-) calcium carbonate 600 mg-vitamin 1 - 2 tab PO DAILY 03/22/20 06/03/23 D3 20 mcg (800 unit) tablet (Caltrate with Vitamin D3) lidocaine 5 % topical ointment 1 applic topical BID PRN pain #120 08/13/22 06/03/23 grams albuterol sulfate 90 mcg/actuation 2 puff inhalation Q6H PRN 11/01/22 06/03/23 aerosol inhaler (Ventolin HFA) shortness of breath or wheezing #8.5 grams levothyroxine 50 mcg tablet 50 mcg PO DAILY #90 tab-caps 12/04/22 06/03/23 propranolol 20 mg tablet 20 mg PO TID #270 tab-caps 12/04/22 06/03/23 lisinopril 20 1 tab PO DAILY #90 tabs 04/01/23 06/03/23 mg-hydrochlorothiazide 25 mg tablet mirtazapine 7.5 mg tablet 7.5 mg PO QHS #90 tabs 05/02/23 06/03/23 Previous Rx's Medication Instructions Recorded lidocaine 5 % topical ointment 1 applic topical BID PRN pain #120 08/13/22 grams albuterol sulfate 90 mcg/actuation 2 puff inhalation Q6H PRN 11/01/22 aerosol inhaler (Ventolin HFA) shortness of breath or wheezing #8.5 grams levothyroxine 50 mcg tablet 50 mcg PO DAILY #90 tab-caps 12/04/22 propranolol 20 mg tablet 20 mg PO TID #270 tab-caps 12/04/22 lisinopril 20 1 tab PO DAILY #90 tabs 04/01/23 mg-hydrochlorothiazide 25 mg tablet mirtazapine 7.5 mg tablet 7.5 mg PO QHS #90 tabs 05/02/23 Allergies Allergy/AdvReac Type Severity Reaction Status Date / Time doxycycline AdvReac Mild GI UPSET Verified 06/03/23 14:04 Sulfa (Sulfonamide AdvReac Mild Verified 06/03/23 14:04 Antibiotics) General Stated Complaint: Nausea/Vomit/Diar YESSENIA: 3 PFSH All Active Problems (Updated 06/03/23 @ 19:04 by Alexis Gonzalez MD) Atrophic kidney, acquired (Acute) Anorexia (Acute) Dyspnea and respiratory abnormalities (Acute) Hypoxia (Acute) Weight loss (Acute) Right foot pain (Acute) Renal insufficiency (Chronic) Pain in left hip (Acute) Phlebitis (Acute) Dyspnea (Acute) Smoker (Acute) Vulvodynia (Chronic) vulvodynia; 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 hearing loss of combined sites, bilateral (Chronic 05/13/17) Rhinitis (Chronic 06/21/14) Osteoporosis (Chronic) T score -2.5 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 Intention tremor (Chronic 05/16/98) benign Hypothyroidism (Chronic 07/06/15) Hemorrhoids (Chronic) Essential hypertension (Chronic 03/12/13) Dizziness (Chronic 05/27/17) Medical History (Updated 06/03/23 @ 19:04 by Alexis Gonzalez MD) Ground glass opacity present on imaging of lung resolved on repeat imaging Acute pain of left lower extremity Non-neoplastic nevus Pneumonia Thyroid function test abnormal (05/01/10) Nevus, non-neoplastic pigmented mole left foot Pneumonia Dyspnea 1999--PFT's indicate mild obstructive disease Smoker 1/2 PPD; quit 2010 Thyroid function test abnormal 05/01/10 elevate TSH; normal free T4 Family History Mother , age 88 Leukemia Multiple myeloma Father , age 72 Heart disease Myocardial infarction Brother , age 70 Prostate cancer Bladder cancer Brother No problems noted. Sister , age 18 No problems noted. Son No problems noted. Son No problems noted. Maternal Grandfather , age 72 Asthma Maternal Grandmother , age 86 No problems noted. Social History Smoking/Tobacco Use Status: Former Tobacco Use tobacco type: cigarettes Tobacco: How many years used: 50 Second Hand Exposure: Yes Smoking risk assessment performed?: Yes (Patient declines Lung cancer screening) Alcohol Intake: current Alcohol Intake frequency: holidays/special occasions only Alcohol type: wine Drug use: Never Substance use type: does not use Caregiver/Support person: No Household members: spouse Housing: house Communication Needs: Hard of Hearing Do you need help understanding health information?: Rarely Pets and animals: No Sexually active: No Do you think of yourself as: straight/heterosexual Current gender identity: female What is your relationship status?: How often do you talk on the phone with friends or family?: three or more times per week How often do you get together with friends or relatives?: once per week How often do you attend judaism or pentecostal services?: decline to answer Do you belong to any clubs or organized social groups?: yes Panel score (0-1 are the most socially isolated patients): 3 Duration: < 15 minutes/day Frequency: 3-4 times per week Cecilia/Gnosticism: Restorationism Special cecilia needs: No Seatbelt use: always Helmet use: No Drive 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 Additional Social history: lives with in their own home VICKI ESCOBAR 06/03/23 Course Vital Signs Vital signs: Vital Signs Temperature 36.9 C 06/03/23 13:58 Pulse 61 06/03/23 13:58 Respiratory Rate 18 06/03/23 13:58 Blood Pressure 180/80 H 06/03/23 13:58 Pulse Oximetry 99 06/03/23 13:58 Temperature 36.9 C 06/03/23 13:58 Pulse 61 06/03/23 13:58 Respiratory Rate 18 06/03/23 13:58 Respiratory Effort Normal 06/03/23 14:02 Blood Pressure 180/80 H 06/03/23 13:58 Pulse Oximetry 99 06/03/23 13:58 Oxygen Delivery Method Room Air 06/03/23 13:58 Oxygen Flow Rate 0 06/03/23 13:58 Pain Level 0 06/03/23 13:58
[2023-06-03 14:29] LABS: Abs Immature Grans 0.04 10^3/uL (0.0-0.06); Absolute Basophil Count 0.12 10^3/uL (0.0-0.2); Absolute Eosinophil Count 0.64 10^3/uL (0.0-0.7); Absolute Lymphocyte Count 0.53 10^3/uL (1.2-3.4); Absolute Monocyte Count 0.67 10^3/uL (0.1-0.8); Absolute Neutrophil Count 6.22 10^3/uL (1.2-6.7); Basophils % 1.5; Eosinophils % 7.8; HCT 35.3 % (36.0-46.0); HGB 11.6 g/dL (11.2-15.7); Immature Grans % 0.5; Lymphocytes % 6.4; MCH 31.3 pg (27.0-33.0); MCHC 32.9 % (32.0-36.0); MCV 95 fL (80-95); MPV 10.8 fL (8.0-11.0); Monocytes % 8.2; Neutrophils % 75.6; Platelet Count 200 10^3/uL (130-400); RBC 3.71 10^6/uL (3.93-5.22); RDW 12.8 % (11.7-14.6); RDW-SD 44.4 fL; WBC 8.22 10^3/uL (4.4-10.8)
[2023-06-03 14:45] LABS: Anion Gap 7.5 mmol/L (3-11); BUN 45 mg/dL (7-18); CO2 26.5 mmol/L (21.0-32.0); CREATININE 1.7 mg/dL (0.55-1.02); Chloride 104 mmol/L (98-107); Estimated GFR 29.76 (mL/min/1.73m2); Glucose 135 mg/dL (74-106); Potassium 4.4 mmol/L (3.5-5.1); Sodium 138 mmol/L (136-145); Troponin I < 50 ng/L (<or=60)
--- NOTE | 2023-06-03 14:47 | DI.MRI_ITS ---
Exam(s) MR ANGIO BRAIN WO CLINICAL HISTORY: Dizziness. CTA with issues. TECHNIQUE: Multiplanar multisequence MRA of the brain was performed. COMPARISON: MR MR BRAIN WO from 06/03/2023 FINDINGS: Carotid Arteries: No aneurysm, occlusion or significant stenosis. Anterior Cerebral Arteries: Right: No aneurysm, occlusion or significant stenosis. Left: No aneurysm, occlusion or significant stenosis. Middle Cerebral Arteries: Right: No aneurysm, occlusion or significant stenosis. Left: No aneurysm, occlusion or significant stenosis. Posterior Cerebral Arteries: Bilateral posterior communicating arteries are visualized. This is a no rmal variant. Right: No aneurysm, occlusion or significant stenosis. Left: No aneurysm, occlusion or significant stenosis. Vertebral Arteries: Right: No aneurysm, occlusion or significant stenosis. Left: No aneurysm, occlusion or significant stenosis. Basilar Artery: No aneurysm, occlusion or significant stenosis. IMPRESSION: No large vessel occlusion or significant stenosis on this MRA of the [id number]. DATA REPOSITORY:
--- NOTE | 2023-06-03 14:47 | DI.MRI_ITS ---
Exam(s) MR ANGIO NECK WO EXAM: MR ANGIO NECK WO CLINICAL HISTORY: Dizziness. CTA with issues. TECHNIQUE: Multiplanar multisequence MRA of the Neck was performed. COMPARISON: No exams were available for comparison FINDINGS: Patient motion artifact. Common Carotid: Right: No dissection, occlusion or significant stenosis. Left: No dissection, occlusion or significant stenosis. External Carotid: Right: No evidence of occlusion or significant stenosis. Left: No evidence of occlusion or significant stenosis. Internal Carotid: Right: No dissection, occlusion or significant stenosis. Left: No dissection, occlusion or significant stenosis. Vertebral Artery: Right: No dissection, occlusion or significant stenosis. Left: No dissection, occlusion or significant stenosis. The visualized paraspinal soft tissues are unremarkable. IMPRESSION: 1. Patient motion artifact. 2. Within the limits of the examination, no evidence of dissection, occlusion or significant stenosis . DATA REPOSITORY:
[2023-06-03] MEDS: levETIRAcetam 500 MG TAB PO (16:24)
[2023-06-03 16:55] LABS: Bilirubin Negative (Negative); Blood Negative (Negative); Clarity Clear (Clear); Glucose Negative (Negative); Ketones Negative (Negative); Leukocyte Esterase Negative (Negative); Nitrite Negative (Negative); Urobilinogen 0.2 mg/dL (Up to 0.2); pH 6.5 (5-8)
[2023-06-03 16:57] LABS: Source Nasal/Nares
[2023-06-03 17:29] LABS: COVID-19 PCR Negative (Negative)
[2023-06-03 18:30] LABS: Troponin I < 50 ng/L (<or=60)
--- NOTE | 2023-06-03 19:03 | NUR.NOTE ---
Pt placed on care management referral list for Brain MRI with and without contrast to be seen within 1week per ER Dr Gonzalez.
== END 2023-06-03 19:09 | disposition home or self-care (01) ==
PROVIDERS: Emergency Provider Emergency Medicine; PCP Family Medicine
DX: R42 Dizziness and giddiness (principal); R11.0 Nausea; R00.1 Bradycardia, unspecified; I10 Essential (primary) hypertension; E03.9 Hypothyroidism, unspecified; F17.210 Nicotine dependence, cigarettes, uncomplicated; Z11.52 Encounter for screening for COVID-19; Z79.82 Long term (current) use of aspirin
CPT/HCPCS: 36415; 70544; 70547; 80048; 82962; 87635; 93005; 99285; 70450; 70551; 71045; 81003; 83735; 84484; 85025; 93010; 99284

== ENCOUNTER → 2023-06-27 02:59 | Outpatient (CLI) | payer MEDICARE, SELFPAY ==
[2023-06-27 11:42] LABS: CREATININE 1.9 mg/dL (0.55-1.02); Estimated GFR 26.04 (mL/min/1.73m2)
== END ==
PROVIDERS: PCP Family Medicine; Visit Provider Family Medicine
DX: R63.4 Abnormal weight loss (principal); D32.9 Benign neoplasm of meninges, unspecified; R42 Dizziness and giddiness
CPT/HCPCS: 82565

== ENCOUNTER 2023-08-08 01:11 | Outpatient (CLI) | payer MEDICARE, SELFPAY ==
[2023-08-08 12:42] LABS: ALT 15 U/L (14-59); AST 18 U/L (15-37); Albumin 3.6 g/dL (3.4-5.0); Alkaline Phosphatase 90 U/L (46-116); Anion Gap 9.5 mmol/L (3-11); BUN 41 mg/dL (7-18); Bilirubin, Total 0.4 mg/dL (0.2-1.0); CO2 25.5 mmol/L (21.0-32.0); CREATININE 1.7 mg/dL (0.55-1.02); Calcium 9.4 mg/dL (8.5-10.1); Chloride 107 mmol/L (98-107); Estimated GFR 29.76 (mL/min/1.73m2); Glucose 90 mg/dL (74-106); Potassium 4.7 mmol/L (3.5-5.1); Sodium 142 mmol/L (136-145); Total Protein 7.1 g/dL (6.4-8.2)
[2023-08-08 15:54] LABS: Lab Add On Test DONE
[2023-08-08 16:28] LABS: PHOSPHORUS 4.5 mg/dL (2.6-4.7)
== END 2023-08-08 01:12 | disposition home or self-care (01) ==
LOC: LOS 01:11
PROVIDERS: PCP Family Medicine; Visit Provider Family Medicine
DX: I10 Essential (primary) hypertension (principal); N26.1 Atrophy of kidney (terminal)
CPT/HCPCS: 36415; 80053; 83970; 84100

== ENCOUNTER → 2023-11-21 13:38 | Outpatient (BNVA) | payer MEDICARE, SELFPAY | PROVIDERS: PCP Family Medicine; Referring Provider Family Medicine; Visit Provider Psychiatry & Neurology Neurology | DX: R40.4 Transient alteration of awareness (principal); G25.2 Other specified forms of tremor; D32.9 Benign neoplasm of meninges, unspecified; I95.1 Orthostatic hypotension | CPT/HCPCS: 99215 ==

== ENCOUNTER 2023-12-04 04:48 | Outpatient (CLI) | payer MEDICARE, SELFPAY ==
[2023-12-04 10:53] LABS: HCT 35.8 % (36.0-46.0); HGB 11.8 g/dL (11.2-15.7); MCH 31.4 pg (27.0-33.0); MCV 95 fL (80-95); MPV 11.4 fL (8.0-11.0); Platelet Count 232 10^3/uL (130-400); RBC 3.76 10^6/uL (3.93-5.22); RDW 13.2 % (11.7-14.6); RDW-SD 46.4 fL; WBC 6.85 10^3/uL (4.4-10.8)
[2023-12-04 11:28] LABS: Anion Gap 7.9 mmol/L (3-11); BUN 30 mg/dL (7-18); CO2 26.1 mmol/L (21.0-32.0); CREATININE 1.5 mg/dL (0.55-1.02); Calcium 9.2 mg/dL (8.5-10.1); Chloride 107 mmol/L (98-107); Estimated GFR 34.36 (mL/min/1.73m2); Glucose 97 mg/dL (74-106); PHOSPHORUS 4.2 mg/dL (2.6-4.7); Potassium 4.4 mmol/L (3.5-5.1); Sodium 141 mmol/L (136-145)
[2023-12-04 18:05] LABS: Parathyroid Hormone,Intact 72 pg/mL (19-88)
[2023-12-06 14:37] LABS: Angiotensin Converting Enzyme 50 U/L (16 - 85)
== END 2023-12-04 04:49 | disposition home or self-care (01) ==
LOC: LOS 04:49
PROVIDERS: PCP Family Medicine; Visit Provider Family Medicine
DX: I10 Essential (primary) hypertension (principal); N28.9 Disorder of kidney and ureter, unspecified; N26.1 Atrophy of kidney (terminal); D64.9 Anemia, unspecified
CPT/HCPCS: 36415; 80048; 82164; 85027; 83970; 84100

== ENCOUNTER → 2023-12-17 09:50 | Outpatient (CLI) | payer MEDICARE, SELFPAY ==
--- NOTE | 2023-12-17 09:15 | DI.US_ITS ---
Exam(s) US LOWER EXTREMITY VENOUS RT EXAM: US LOWER EXTREMITY VENOUS RT CLINICAL HISTORY: right lower extremity swelling -acute, M79.89 TECHNIQUE: Grayscale, color, and doppler imaging of the deep venous system of the right lower extrem ity was performed. COMPARISON: US US ECHOCARDIOGRAM from 11/29/2022 FINDINGS: There is no evidence of DVT at and above the level of the knee. There is no evidence of intraluminal thrombus and there is normal compression and augmentation demonstrated within the common femoral vei n, femoral vein, and popliteal vein. At the level the calf there is no intraluminal thrombus within the posterior tibial veins. However, there is intraluminal occlusive thrombus evident in 1 of the peroneal veins with clot length measurem ent of 11.5 cm. The ipsilateral saphenofemoral junction is patent. Alex cyst in the popliteal fossa noted but measuring 4 cm length IMPRESSION: This study is positive for DVT in the right calf, specifically within peroneal vein. Clot length is 11.5 cm. Incidentally noted is a Alex cyst in the popliteal fossa measuring 4 cm length DATA REPOSITORY:
--- NOTE | 2023-12-17 09:15 | DI.RAD_ITS ---
Exam(s) XR KNEE RT 3V AP,LAT,HAYDE EXAM: XR KNEE RT 3V AP,LAT,HAYDE CLINICAL HISTORY: right knee pain and swelling, M25.561. TECHNIQUE: 2D digital imaging was performed. COMPARISON: No exams were available for comparison FINDINGS: 3 views No evidence of acute fracture but there is a joint effusion noted in the suprapatellar bursa. There are also small calcific densities noted within the suprapatellar bursa, possibly within a loose intra -articular body. There is abnormal soft tissue swelling did deep subcutaneous tissue over the medial aspect of the kne e adjacent to the medial collateral ligament region. No radiopaque foreign bodies. There is no significant narrowing of the joint spaces but there is chondrocalcinosis evident in both medial lateral compartments. No osteophytes. No osteochondral defects. IMPRESSION: Chondrocalcinosis. Joint effusion. Soft tissue abnormality adjacent to the medial collateral ligament. Correlation with any clinical si gns of MCL tear recommended. There is no evidence of Vanda-Stieda osseous fragment at this leve l off the outer aspect of the medial femoral condyle. DATA REPOSITORY: RADIATION DOSE DELIVERED:
== END ==
PROVIDERS: PCP Family Medicine; Visit Provider Family Medicine
DX: M79.89 Other specified soft tissue disorders (principal); M25.561 Pain in right knee; M11.20 Other chondrocalcinosis, unspecified site; M25.40 Effusion, unspecified joint
CPT/HCPCS: 73562; 93971

== ENCOUNTER → 2024-01-10 00:30 | Outpatient (CLI) | payer MEDICARE, SELFPAY ==
--- NOTE | 2024-01-10 07:45 | DI.CT_ITS ---
Exam(s) CT ABDOMEN CTA EXAM: CT ABDOMEN CTA CLINICAL HISTORY: atrophy of kidney,? renal artery stenosis,I10, hypertension. TECHNIQUE: Imaging Protocol: Axial computed tomography images with coronal and sagittal reformatted images were created and reviewed CONTRAST MATERIAL: Intravenous: Omnipaque 350 Contrast volume:100 ml Oral: None COMPARISON: CT CT ABDOMEN PELVIS WO from 04/29/2023 FINDINGS: VISUALIZED LUNG BASES: Benign subpleural scarring noted in posterior basal segment right lower lobe, unchanged from 04/29/2023 CT scan. There are no pleural effusions. CARDIAC: Heart size is normal. There is no pericardial effusion. ABDOMEN: AORTA: There is peripheral calcification and moderate atherosclerosis of the abdominal aorta but with out aneurysmal dilatation, with the maximum external diameter of the abdominal aorta measuring 2 cm. Also no evidence of aneurysm nor stenosis at the aortic bifurcation nor within the visualized common iliac arteries.There is no significant stenosis within the abdominal aortic lumen nor at the level t he aortic bifurcation. There is mild stenosis at the origin of the celiac artery and superior mesent farhan artery. No obvious high-grade stenosis at these levels and no intraluminal filling defect to ulrich ggest intra arterial embolization of these mesenteric vessels. 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 The le ft kidney is small and atrophic,, measuring 6 cm craniocaudal length. The opposite-right kidney shantanu ures 7.7 cm length. There is mild-moderate stenosis at the ostium of the right renal artery. No pos tstenotic dilatation noted. No evidence of fibromuscular dysplasia. No cysts nor solid masses evide nt in right kidney. There is no ascites. LIVER: There is a solitary cyst again noted liver within the left hepatic lobe, unchanged from CT sca n of April 2023 and measuring 2.3 cm wide by 1 9 cm AP by 1.5 cm craniocaudal. This is unchanged from 04/29/2023. There are no dilated intrahepatic ducts. GALLBLADDER/BILIARY: No obvious gallbladder pathology. CBD is not dilated. PANCREAS: No evidence of pancreatic mass nor dilatation of the pancreatic duct. SPLEEN: Spleen is not enlarged. There are no intrasplenic lesions. Splenic and portal veins are john nt. ADRENALS: No significant adrenal gland findings. KIDNEYS: As described above, the left kidney is again noted be atrophic. Right kidney exhibits lucinda l size. No calculi nor hydronephrosis. No solid renal masses. \ LYMPH NODES: There is no retroperitoneal nor para-aortic adenopathy. No obvious mesenteric masses. ABDOMINAL WALL: Small fat only containing midline umbilical hernia. Does not contain bowel loops. GI: No evidence of ischemic appearing bowel loops nor bowel obstruction within the field of view of t his study. Stomach is not distended. No mesenteric masses identified. OSSEOUS: No fractures. Mild anterolisthesis of L5 upon S1 due to bilateral L5 pars defects. No sign ificant disc space narrowing at this level nor elsewhere in the lumbosacral spinal column. IMPRESSION: 1. 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 The left kidney is small-atro phic. 2. Right kidney size is normal. There is mild stenosis at the origin of the right renal artery. 3. Moderately atherosclerotic abdominal aorta but no evidence of aneurysm. Also no significant focal aneurysmal dilatation of the visualized common iliac arteries. 4. Stable benign-appearing cyst in the liver left hepatic lobe. RADIATION DOSE DELIVERED: Total DLP DATA REPOSITORY: All CT scans at this facility are submitted to the National Radiology Data Registry (NRDR) Dose Index Registry (DIR) with the [employer] (ACR). RADIATION OPTIMIZATION: All CT scans at this facility use at least one of these dose optimization te chniques: automated exposure control; mA and/or kV adjustment per patient size (includes targeted exa ms where dose is matched to clinical indication); or iterative reconstruction.
[2024-01-10 14:31] LABS: HCT 36.8 % (36.0-46.0); MCH 31.6 pg (27.0-33.0); MCHC 32.6 % (32.0-36.0); MCV 97 fL (80-95); MPV 9.8 fL (8.0-11.0); Platelet Count 259 10^3/uL (130-400); RDW 12.7 % (11.7-14.6); RDW-SD 45.2 fL
[2024-01-10 14:51] LABS: ALT 21 U/L (14-59); AST 19 U/L (15-37); Albumin 3.4 g/dL (3.4-5.0); Alkaline Phosphatase 103 U/L (46-116); Anion Gap 7.7 mmol/L (3-11); BUN 31 mg/dL (7-18); Bilirubin, Total 0.23 mg/dL (0.2-1.0); CO2 31.3 mmol/L (21.0-32.0); CREATININE 1.7 mg/dL (0.55-1.02); Calcium 9.3 mg/dL (8.5-10.1); Chloride 102 mmol/L (98-107); Estimated GFR 29.57 (mL/min/1.73m2); Glucose 138 mg/dL (74-106); Potassium 3.6 mmol/L (3.5-5.1); Sodium 141 mmol/L (136-145); Total Protein 7.3 g/dL (6.4-8.2)
[2024-01-10] MEDS: Normal Saline - Diluent 50 ML VIAL IJ (15:19)
[2024-01-10] MEDS: Omnipaque 350 MG/ML 100 ML BTL IJ (15:20)
[2024-01-14 10:01] LABS: Factor V Leiden(R506Q) Mut Heterozygous (Negative)
== END ==
PROVIDERS: PCP Family Medicine; Visit Provider Family Medicine
DX: I10 Essential (primary) hypertension; N26.1 Atrophy of kidney (terminal); N28.0 Ischemia and infarction of kidney; D13.4 Benign neoplasm of liver; D69.9 Hemorrhagic condition, unspecified; Z01.812 Encounter for preprocedural laboratory examination
CPT/HCPCS: 80053; 81241; 85027; J3490

== ENCOUNTER 2024-03-17 10:30 | Outpatient (CLI) | payer MEDICARE, SELFPAY ==
[2024-03-17 12:50] LABS: TSH (W/Ref FT4) 2.02 uIU/mL (0.36-3.74)
[2024-03-18 11:03] LABS: Hepatitis C Ab w Rflx HCV PCR Negative (Negative)
== END 2024-03-17 10:31 | disposition home or self-care (01) ==
LOC: LOS 10:31
PROVIDERS: PCP Family Medicine; Referring Provider Family Medicine; Visit Provider Family Medicine
DX: E03.9 Hypothyroidism, unspecified (principal); Z11.59 Encounter for screening for other viral diseases; Z23 Encounter for immunization; M25.562 Pain in left knee; R60.9 Edema, unspecified
CPT/HCPCS: 36415; 86803; 84443

== ENCOUNTER 2024-03-18 01:22 | Outpatient (CLI) | payer MEDICARE, SELFPAY ==
--- NOTE | 2024-03-18 07:30 | DI.RAD_ITS ---
Exam(s) XR KNEE LT 3V AP,LAT,HAYDE EXAM: XR KNEE LT 3V AP,LAT,HAYDE CLINICAL HISTORY: left knee pain and swelling,m25.562. TECHNIQUE: 2D digital imaging was performed of the left knee. Three images were obtained. AP, late ral and PA tunnel views were obtained. COMPARISON: No priors for comparison. FINDINGS: BONES: No acute fracture is present. No bony destructive lesion is seen. JOINTS: There is calcifications seen in both the medial lateral femoral tibial joint consistent with chondrocalcinosis. This can be seen with CPPD arthropathy. There is a small joint effusion. No loo se body. SOFT TISSUE: In the intercondylar space, there is a triangular density projected on the tunnel view. This may represent a vascular calcification or a loose body. IMPRESSION: 1. A triangular density projected on the tunnel view which may represent a vascular calcification or loose body. The articular surfaces appear well maintained but a fracture cannot be entirely excluded . CT scan of the knee may be considered for further evaluation. 2. Arthrosis of the knee is noted. Unexpected findings DATA REPOSITORY: RADIATION DOSE DELIVERED:
--- NOTE | 2024-03-18 07:30 | DI.US_ITS ---
Exam(s) US LOWER EXTREMITY VENOUS LT EXAM: US LOWER EXTREMITY VENOUS LT CLINICAL HISTORY: left leg swelling, on eliquis,r60.9. TECHNIQUE: Lower extremity venous ultrasound performed using grayscale, color-flow, and spectral Do ppler analysis. COMPARISON: No exams were available for comparison FINDINGS: The common femoral, femoral and popliteal veins demonstrate normal compressibility, augmentation, and color Doppler. The posterior tibial veins are patent. No saphenous vein thrombosis or other superfi cial venous thrombosis is seen. No hematoma is seen. There is a popliteal fossa cyst measuring 3.3 x 0.8 x 3.3 cm. IMPRESSION: Small Alex's cyst. No evidence of DVT. DATA REPOSITORY:
== END 2024-03-18 01:42 ==
LOC: DI 01:22
PROVIDERS: PCP Family Medicine; Visit Provider Family Medicine
DX: M25.562 Pain in left knee (principal); R60.9 Edema, unspecified
CPT/HCPCS: 73562; 93971

== ENCOUNTER 2024-03-26 01:36 | Outpatient (CLI) | payer MEDICARE, SELFPAY ==
--- NOTE | 2024-03-26 11:30 | DI.CT_ITS ---
Exam(s) CT LOWER EXTREMITY LT WO EXAM: CT LOWER EXTREMITY LT WO CLINICAL HISTORY: ? loose body on xray,f/u abnl xr r93.6. TECHNIQUE: Imaging Protocol: Axial computed tomography images with coronal and sagittal reformatted images were created and reviewed. CONTRAST MATERIAL: Intravenous: None COMPARISON: CR XR KNEE LT 3V AP,LAT,HAYDE from 03/18/2024 FINDINGS: There is a joint effusion noted. No fractures evident. Tibial plateau appears intact. Femoral condyles as well as the fibular head a nd neck appear intact and there is no patellar fracture. There is chondrocalcinosis in both the medi al lateral compartments evident. There is a small calcified body noted within the suprapatellar bursa consistent with loose intra-kostas cular body. This measures approximately 5 x 4 mm. Calcifications are also seen within the intercond ylar notch although this appears to be related to the posterior cruciate ligament and upper aspect of the anterior cruciate ligament. Some calcification is also noted posteriorly in the anterior wall t he popliteal artery. IMPRESSION: 1. No fractures evident although there is a prominent joint effusion and at least 1 small calcified l oose intra-articular body noted with in the suprapatellar bursa. 2. Increased density-calcification related to both the upper aspect of the anterior cruciate ligament and throughout the posterior cruciate ligament. 3. Chondrocalcinosis noted in both medial lateral compartments RADIATION DOSE DELIVERED: 201.64mGy.cm Total DLP DATA REPOSITORY: All CT scans at this facility are submitted to the National Radiology Data Registry (NRDR) Dose Index Registry (DIR) with the [employer] ([employer]). RADIATION OPTIMIZATION: All CT scans at this facility use at least one of these dose optimization te chniques: automated exposure control; mA and/or kV adjustment per patient size (includes targeted exa ms where dose is matched to clinical indication); or iterative reconstruction.
== END 2024-03-26 01:56 ==
LOC: DI 01:36
PROVIDERS: PCP Family Medicine; Visit Provider Family Medicine
DX: R93.6 Abnormal findings on diagnostic imaging of limbs (principal)
CPT/HCPCS: 73700

== ENCOUNTER → 2024-04-27 07:55 | Outpatient (BNVA) | payer MEDICARE, SELFPAY | PROVIDERS: PCP Family Medicine; Referring Provider Family Medicine | DX: M11.262 Other chondrocalcinosis, left knee (principal); M11.261 Other chondrocalcinosis, right knee | CPT/HCPCS: 20610; 99213; J1010 ==

== ENCOUNTER 2024-09-21 03:41 | Outpatient (CLI) | payer MEDICARE, SELFPAY ==
[2024-09-21 12:15] LABS: HCT 43.1 % (36.0-46.0); HGB 14.2 g/dL (11.2-15.7); MCH 30.9 pg (27.0-33.0); MCHC 32.9 % (32.0-36.0); MCV 94 fL (80-95); MPV 11.1 fL (8.0-11.0); Platelet Count 315 10^3/uL (130-400); RBC 4.59 10^6/uL (3.93-5.22); RDW 12.9 % (11.7-14.6); RDW-SD 44.1 fL; WBC 9.63 10^3/uL (4.4-10.8)
[2024-09-21 12:54] LABS: ALT 16 U/L (14-59); AST 17 U/L (15-37); Albumin 3.5 g/dL (3.4-5.0); Alkaline Phosphatase 89 U/L (46-116); Anion Gap 6.6 mmol/L (3-11); BUN 33 mg/dL (7-18); Bilirubin, Total 0.5 mg/dL (0.2-1.0); CO2 31.4 mmol/L (21.0-32.0); CREATININE 1.5 mg/dL (0.55-1.02); Calcium 9.7 mg/dL (8.5-10.1); Chloride 107 mmol/L (98-107); Estimated GFR 34.36 (mL/min/1.73m2); Glucose 102 mg/dL (74-106); Potassium 3.8 mmol/L (3.5-5.1); Sodium 145 mmol/L (136-145); TSH (W/Ref FT4) 1.98 uIU/mL (0.36-3.74); Total Protein 7.4 g/dL (6.4-8.2); Vitamin B12 852 pg/mL (193-986)
== END 2024-09-21 03:42 | disposition home or self-care (01) ==
LOC: LOS 03:41
PROVIDERS: PCP Family Medicine; Visit Provider Family Medicine
DX: I10 Essential (primary) hypertension (principal); E03.9 Hypothyroidism, unspecified; E53.8 Deficiency of other specified B group vitamins; D64.9 Anemia, unspecified
CPT/HCPCS: 36415; 80053; 85027; 82607; 84443

== ENCOUNTER 2025-04-23 02:58 | Outpatient (CLI) | payer MEDICARE, SELFPAY ==
[2025-04-23 13:15] LABS: HCT 40.9 % (36.0-46.0); HGB 13.4 g/dL (11.2-15.7); MCH 31.0 pg (27.0-33.0); MCHC 32.8 % (32.0-36.0); MCV 95 fL (80-95); MPV 11.1 fL (8.0-11.0); Platelet Count 208 10^3/uL (130-400); RBC 4.32 10^6/uL (3.93-5.22); RDW 12.7 % (11.7-14.6); RDW-SD 44.2 fL; WBC 7.64 10^3/uL (4.4-10.8)
[2025-04-23 14:21] LABS: ALT 15 U/L (14-59); AST 13 U/L (15-37); Albumin 3.7 g/dL (3.4-5.0); Alkaline Phosphatase 93 U/L (46-116); Anion Gap 9.8 mmol/L (3-11); BUN 23 mg/dL (7-18); Bilirubin, Total 0.4 mg/dL (0.2-1.0); CO2 30.2 mmol/L (21.0-32.0); Calcium 8.9 mg/dL (8.5-10.1); Chloride 104 mmol/L (98-107); Glucose 106 mg/dL (74-106); Potassium 3.5 mmol/L (3.5-5.1); Sodium 144 mmol/L (136-145); TSH (W/Ref FT4) 2.39 uIU/mL (0.36-3.74); Total Protein 7.4 g/dL (6.4-8.2)
== END 2025-04-23 02:59 | disposition home or self-care (01) ==
PROVIDERS: PCP Family Medicine; Visit Provider Family Medicine
DX: Z79.01 Long term (current) use of anticoagulants (principal); E03.9 Hypothyroidism, unspecified; I10 Essential (primary) hypertension
CPT/HCPCS: 36415; 80053; 85027; 84443